=== PATIENT | male | born 2000 | race Hispanic/Latino ===

== ENCOUNTER 2021-12-09 13:22 | Emergency (ER) | payer OTHER, SELFPAY ==
[~2021-12-09 13:22] MED LIST: Iopamidol 370 76% 100 ML VIAL ONE
== END 2021-12-09 15:25 | disposition home or self-care (01) ==
LOC: ERS 13:22
DX: S90.01XA Contusion of right ankle, initial encounter (principal); S30.1XXA Contusion of abdominal wall, initial encounter; V89.2XXA Person injured in unspecified motor-vehicle accident, traffic, initial encounter
CPT/HCPCS: 71045; 72170; 74177; Q9967

== ENCOUNTER 2022-11-18 11:31 | Emergency (ER) | payer SELFPAY | END 2022-11-18 13:18 | disposition home or self-care (01) | LOC: ERS 11:31 | DX: K13.0 Diseases of lips (principal) | CPT/HCPCS: 99283 ==